=== PATIENT | male | born 1990 | race Two or more races ===

== ENCOUNTER 2017-05-13 16:58 | Emergency (ER) | payer SELFPAY ==
[2017-05-13] MEDS ORDERED: 0.9 % SODIUM CHLORIDE 10 ML DISP.SYRIN. IV (17:30)
[2017-05-13 17:37] LABS: ADD MAN DIFF? NO
[2017-05-13 17:44] LABS: BASO % 0 % (0-3); EOS % 0 % (0-3); HEMATOCRIT 43.4 % (39.0-53.0); HEMOGLOBIN 14.6 g/dL (13.0-17.5); LYMPH # 1.3 x10^3/uL (1.0-4.8); LYMPH % 15 % (24-48); MEAN CORPUSCULAR HEMOGLOBIN 29 pg (25-35); MEAN CORPUSCULAR HGB CONC 34 g/dL (31-37); MEAN CORPUSCULAR VOLUME 87 fL (79-100); MONO # 0.5 x10^3/uL (0.0-1.1); MONO % 6 % (0-9); NEUT # 6.8 x10^3uL (1.8-7.7); NEUT % 78 % (31-73); PLATELET COUNT 228 x10^3/uL (140-400); RED BLOOD COUNT 4.99 x10^6/uL (4.30-5.70); WHITE BLOOD COUNT 8.7 x10^3/uL (4.0-11.0)
[2017-05-13 17:46] LABS: ANION GAP 12 (6-14); BLOOD UREA NITROGEN 10 mg/dL (8-26); CARBON DIOXIDE 26 mmol/L (21-32); CHLORIDE 102 mmol/L (98-107); CREATININE 0.7 mg/dL (0.7-1.3); GFR 138.6; GLUCOSE 107 mg/dL (70-99); POTASSIUM 3.8 mmol/L (3.5-5.1); SODIUM 140 mmol/L (136-145)
[2017-05-13] MEDS: ASPIRIN CHEWABLE 81 MG TABLET. PO (17:50)
[2017-05-13] MEDS: IV NORMAL SALINE 1000ML BAG 1,000 ML IV (17:50)
[2017-05-13 17:56] LABS: ALBUMIN 4.6 g/dL (3.4-5.0); ALK PHOS 94 U/L (46-116); ALT (SGPT) 22 U/L (16-63); AST (SGOT) 22 U/L (15-37); DIRECT BILIRUBIN 0.1 mg/dL (0.0-0.2); LIPASE 89 U/L (73-393); MAGNESIUM 2.4 mg/dL (1.8-2.4); TOTAL BILIRUBIN 0.5 mg/dL (0.2-1.0); TOTAL PROTEIN 7.9 g/dL (6.4-8.2)
[2017-05-13 17:58] LABS: D-DIMER < 0.27 ug/mlFEU (0.00-0.50)
[2017-05-13 18:03] LABS: TROPONINI < 0.017 ng/mL (0.000-0.055)
[2017-05-13 18:04] LABS: NT-PRO BNP 20 pg/mL (0-124); THYROID STIM HORMONE (TSH) 1.831 uIU/mL (0.358-3.74)
[2017-05-13 18:04] LABS: CKMB INDEX 1.6 % (0-4); CKMB MASS 1.9 ng/mL (0.0-3.6); CREATINE KINASE 116 U/L (39-308)
[2017-05-13 19:07] LABS: BARBITURATES NEG (NEG); BENZODIAZEPINES NEG (NEG); CANNABINOIDS NEG (NEG); COCAINE NEG (NEG); METHADONE NEG (NEG); OPIATES NEG (NEG); PHENCYCLIDINE NEG (NEG)
[2017-05-13 19:08] LABS: AMPHETAMINE/METHAMPHETAMINE NEG (NEG); ETHANOL, URINE NEG (NEG)
[2017-05-13] MEDS ORDERED: KETOROLAC 30 MG/ML INJ. IV (20:15)
== END 2017-05-13 20:05 | disposition home or self-care (01) ==
LOC: ER 16:58
DX: R07.89 Other chest pain (principal); R06.02 Shortness of breath; R11.0 Nausea; R05 Cough; M54.2 Cervicalgia; M25.512 Pain in left shoulder; M25.511 Pain in right shoulder; F17.210 Nicotine dependence, cigarettes, uncomplicated
CPT/HCPCS: 36415; 71046; 80048; 80076; 80307; 82553; 83690; 83735; 83880; 84443; 84484; 85025; 85379; 93005; 96360; 99285-25; J7030